=== PATIENT | female | born 1945 | race Two or more races ===

== ENCOUNTER 2019-06-09 20:50 | Emergency (ER) | payer MEDICARE, MEDICAID ==
[~2019-06-09] VITALS: Ht 160 cm; Wt 45.4 kg
[2019-06-09 21:30] LABS: Urine Bacteria NONE SEEN /hpf (None Seen); Urine Blood Negative /uL (Negative); Urine Mucus FEW (None Seen); Urine Specific Gravity 1.023 (1.001-1.035); Urine WBC 2 /hpf (0 - 5)
[2019-06-09 21:48] LABS: Basophils # (auto) 0 uL; Basophils % (auto) 0.4 % (0.0-2.0); Eosinophils # (auto) 0 uL; Eosinophils % (auto) 0.2 % (0.0-7.0); Hematocrit 45.7 % (36.0-46.0); Hemoglobin 14.4 g/dL (12.2-16.2); Lymphocytes # (auto) 1.9 uL; Lymphocytes % (auto) 19.4 % (10.0-50.0); Mean Corpuscular Hemoglobin 29.2 pg (28.0-32.0); Mean Corpuscular Hgb Conc. 31.5 g/dL (32.0-36.0); Mean Corpuscular Volume 92.8 fL (80.0-100.0); Monocytes # (auto) 0.4 uL; Monocytes % (auto) 4.2 % (0.0-12.0); Neutrophils # (auto) 7.4 uL; Neutrophils % (auto) 75.8 % (37.0-80.0); Platelet Count (auto) 166 10^3/uL (140-450); Red Blood Cells 4.92 10^6/uL (4.0-5.20); Red Cell Distribution Width 16.9 % (11.8-14.3); White Blood Cell 9.8 10^3/uL (4.4-10.8)
[2019-06-09 21:59] LABS: Albumin 3.1 g/dL (3.4-5.0); Calcium 8.4 mg/dL (8.5-10.1); Potassium 4.8 mmol/L (3.5-5.1)
[2019-06-09 22:04] LABS: Bilirubin, Total 0.6 mg/dL (0.2-1.0); Lactic Acid w/Reflex 2.3 mmol/L (0.4-2.0); Total Protein 6.7 g/dL (6.4-8.2)
[2019-06-09] MEDS ORDERED: SOD CHL 0.45% 1,000 ML IV ONE (22:30)
[2019-06-10 07:31] VITALS: BP 110/56
== END 2019-06-10 07:51 | disposition short-term general hospital (02) ==
LOC: EDBD 20:50 → EDSEX 20:55 → ER 20:55
DX: G93.41 Metabolic encephalopathy (principal); R41.82 Altered mental status, unspecified; E86.0 Dehydration; E11.65 Type 2 diabetes mellitus with hyperglycemia; N28.9 Disorder of kidney and ureter, unspecified; R79.89 Other specified abnormal findings of blood chemistry
CPT/HCPCS: 36415; 36600; 70450; 80053; 81001; 82805; 82962; 83605; 83880; 84484; 85025; 87040; 93005; 96360; 96361

== ENCOUNTER 2019-07-31 04:05 | Inpatient (IN) | payer MEDICARE, MEDICAID ==
[~2019-07-31] VITALS: Ht 160 cm; Wt 79.4 kg
[2019-07-31] MEDS ORDERED: SODIUM CHLORIDE 0.9% 1,000 ML IV ONE (04:48)
[2019-07-31] MEDS ORDERED: levoFLOXacin 500 MG/100 ML PREMIX BAG IV ONE (05:00)
[2019-07-31] MEDS ORDERED: SODIUM CHLORIDE 0.9% 1,000 ML IV SCH (06:40)
[2019-07-31] MEDS ORDERED: HYDROmorphone HCL 2 MG/ML VL IV PRN (06:45)
[2019-07-31] MEDS ORDERED: MORPHINE SULFATE 4 MG/ML SYR/VIAL IV PRN (06:45)
[2019-07-31] MEDS ORDERED: ONDANSETRON HCL 4 MG/2 ML VIAL IV PRN (06:45)
[2019-07-31 07:21] LABS: Hemoglobin 14.8 g/dL (12.2-16.2); Mean Corpuscular Hemoglobin 29.3 pg (28.0-32.0); Mean Corpuscular Hgb Conc. 31.5 g/dL (32.0-36.0); Mean Corpuscular Volume 93.1 fL (80.0-100.0); Platelet Count (auto) 290 10^3/uL (140-450); Red Blood Cells 5.05 10^6/uL (4.0-5.20); Red Cell Distribution Width 16.2 % (11.8-14.3); White Blood Cell 13.2 10^3/uL (4.4-10.8)
[2019-07-31 07:22] LABS: Basophils % (manual) 0 (0.0-2.0); Blast Cells 0; Eosinophils % (manual) 0 (0-7); Promyelocytes % 0; Reactive Lymphocytes 0
[2019-07-31 07:34] LABS: Alanine Aminotransferase 584 U/L (13-56); Albumin 2.6 g/dL (3.4-5.0); Anion Gap 28 (5-15); Aspartate Aminotransferase 852 U/L (15-37); BUN/Creatinine Ratio 26.1; Calcium 9.2 mg/dL (8.5-10.1); Chloride 92 mmol/L (98-107); GFR African American 18 mL/min; GFR Non-African American 15 mL/min; Glucose 376 mg/dL (74-106); Magnesium 2.5 mg/dL (1.6-2.6); Sodium 128 mmol/L (136-145)
[2019-07-31 07:36] VITALS: BP 64/18
[2019-07-31 07:36] LABS: Alkaline Phosphatase 68 U/L (45-117); Total Protein 6.9 g/dL (6.4-8.2)
[2019-07-31 07:50] LABS: Blood Urea Nitrogen 84 mg/dL (7-18); Carbon Dioxide 8 mmol/L (21-32); Potassium 7.1 mmol/L (3.5-5.1)
[2019-07-31 07:51] LABS: Blood Alcohol < 3.0 mg/dL (0-5)
[2019-07-31 08:38] LABS: Band Neutrophils % (manual) 25; Lymphocytes % (manual) 19 (10.0-50.0); Metamyelocytes % 3; Monocytes % (manual) 10 (0-12); Myelocytes % 2
--- NOTE | 2019-08-01 10:12 | NUR ---
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 No call or page on this patient. Patient 07/31/19 Addendum: 08/01/19 at 1012 by Mini Baca Amended: Links added.
== END 2019-07-31 08:10 | disposition expired | DRG 871 ==
LOC: ER 04:05 → EDBD 04:05 → OVERFLOW 04:06
PROVIDERS: ADMIT Hospitalist; ATTEND Hospitalist
DX: A41.9 Sepsis, unspecified organism (principal); G93.41 Metabolic encephalopathy; E11.65 Type 2 diabetes mellitus with hyperglycemia; I10 Essential (primary) hypertension; Z51.5 Encounter for palliative care; J44.9 Chronic obstructive pulmonary disease, unspecified; Z66 Do not resuscitate; Z86.73 Personal history of transient ischemic attack (TIA), and cerebral infarction without residual deficits; Z88.1 Allergy status to other antibiotic agents; Z88.5 Allergy status to narcotic agent
CPT/HCPCS: 36415; 51702; 80053; 80320; 82962; 83735; 84484; 85007; 85027; 93005; 96365; 99291; G0378; J1956